=== PATIENT | female | born 1980 | race Caucasian/White ===

== ENCOUNTER 2018-01-14 15:56 | Emergency (ER) | payer BC ==
[~2018-01-14] VITALS: Ht 162.6 cm; Wt 90.7 kg
[~2018-01-14 15:56] MED LIST: COLACE100 MG PO; HYDROCODONE-AP1 EAC6 PO; IBUPROFEN 200200 M1 PO
[2018-01-14] MEDS ORDERED: SINGULAIR 10 MG10 M1 PO (16:14)
[2018-01-14] MEDS ORDERED: LISINOPRIL10 MG PO (16:14)
[2018-01-14] MEDS ORDERED: IBUPROFEN 800800 M1 PO (16:37)
[2018-01-14 16:54] VITALS: BP 113/72
== END 2018-01-14 16:56 | disposition home or self-care (01) ==
LOC: M.ERS 15:56
DX: S93.491A Sprain of other ligament of right ankle, initial encounter (principal); X50.1XXA Overexertion from prolonged static or awkward postures, initial encounter; Y93.89 Activity, other specified; Y92.89 Other specified places as the place of occurrence of the external cause; Y99.8 Other external cause status

== ENCOUNTER 2018-06-09 16:16 | Emergency (ER) | payer BC ==
[~2018-06-09] VITALS: Ht 160 cm; Wt 88.5 kg
[~2018-06-09 16:16] MED LIST changes: +IBUPROFEN 800800 M1 PO; +LISINOPRIL10 MG PO; +SINGULAIR 10 MG10 M1 PO
[2018-06-09] MEDS ORDERED: TRAMADOL 50 MG50 MG PO (17:24)
[2018-06-09] MEDS ORDERED: MOBIC15 MG PO (17:24)
[2018-06-09 17:42] VITALS: BP 133/82
== END 2018-06-09 17:42 | disposition home or self-care (01) ==
LOC: M.ERS 16:16
DX: M25.561 Pain in right knee (principal)